=== PATIENT | female | born 1935 | race Caucasian/White ===

== ENCOUNTER 2016-11-03 09:56 | Outpatient (CLI) | payer MEDICARE | END 2016-11-03 09:57 | LOC: LAB 09:56 | PROVIDERS: ATTEND Family Medicine | DX: I48.91 Unspecified atrial fibrillation (principal) | CPT/HCPCS: 36415; 85610 ==

== ENCOUNTER 2017-01-19 10:29 | Emergency (ER) | payer MEDICARE ==
--- NOTE | 2017-01-19 10:35 | ED Physician Documentation ---
General Adult - HISTORIAN Historian: patient - HPI Stated Complaint: rapid heart Chief Complaint: General Adult Onset: hours Timing: still present Severity: moderate Further Comments: yes (Pt is an 82 yo female with hx afib, who had heart palpatations this am. Pt was given her Diltiazem 120 mg ER morning med just prior to leaving for the ER. Pt has not had CP, n/v. She did have some sob.) - ROS CONST: weakness EYES/ENT: none CVS/RESP: shortness of breath, other (rapid heart) GI/: none MS/SKIN/LYMPH: other (skin tear R forearm) - PAST HX Past History: A-Fib, hypertension, other (HLD) Surgeries/Procedures: other (appendectomy) Allergies/Adverse Reactions: Allergies Allergy/AdvReac Type Severity Reaction Status Date / Time No Known Drug Allergies Allergy Unverified 12/17/13 14:16 Home Medications: Ambulatory Orders Medication Instructions Recorded Acetaminophen [Tylenol] 325 mg PO Q4 PRN 01/19/17 Diltiazem HCl [Diltiazem 12Hr ER] 120 mg PO QDAY 01/19/17 Docusate Sodium [Colace] 1 cap PO BID 01/19/17 Hydrocodone/Acetaminophen 1 each PO BID 01/19/17 [Hydrocodon-Acetaminophen 5-325] LORazepam [Ativan] 0.5 mg PO TID PRN 01/19/17 Warfarin Sodium 4 mg PO [id number] 01/19/17 Warfarin Sodium [Coumadin] 5 mg PO [id number] 01/19/17 - SOCIAL HX Smoking History: non-smoker - FAMILY HX Family History: No - REVIEWED ASSESSMENTS Nursing Assessment Reviewed: Yes Vitals Reviewed: Yes Progress - Progress Progress: CXR: 1. Nodules versus nodular infiltrates in the mid to lower right lung. Recommend contrast enhanced chest CT for further evaluation. 2. Thoracic scoliosis, hyperinflation, cardiomegaly, and atherosclerosis. CT chest w contrast: Nodular infiltrative opacity seen within the bilateral lung bases, right greater than left with associated small right pleural effusion. Differential considerations include infectious/inflammatory etiology however malignancy cannot be fully excluded. Short interval CT follow-up recommended to document resolution. Cardiomegaly. Pt's afib with RVR resolved without ER tx. Pt had been given Diltiazem 120 mg ER, just prior to leaving the [facility]. Pt may not have been taking Diltiazem twice daily as rx'd. Pt will resume Diltiazem 120 mg ER bid. Rx Levaquin 500 mg po qd x 10 days for pulmonary nodules, infiltrate vs other etiology. Pt will f/u with pcp for interval evaluation, possible repeat CT scan. Skin tear R forearm repaired with steri-strips. - EKG/XRAY/CT EKG: rhythm (atrial fibrillation with rapid rate, TB=798; LAD;) ED Results Lab/Radiology - Orders Orders: ED Orders Category Date Time Status Continuous EKG monitoring Q30M Care 01/19/17 10:33 Ordered Continuous Pulse Oximetry Q30M Care 01/19/17 10:[address] Saline Lock/IV NOW Care 01/19/17 10:33 Ordered CHEST 1 VIEW [RAD] Stat Exams 01/19/17 10:33 Ordered CBC/PLATELET/DIFF Routine Lab 01/19/17 10:33 Ordered CKMB Stat Lab 01/19/17 Ordered CMP Routine Lab 01/19/17 10:33 Ordered CREATINE KINASE Routine Lab 01/19/17 10:33 Ordered TROPONIN I (cTnI) Stat Lab 01/19/17 10:33 Ordered Oxygen Daily Oxygen 01/19/17 10:45 Ordered EKG WITH COMPARISON Stat Ther 01/19/17 10:33 Ordered General Adult Physical Exam - PHYSICAL EXAM GENERAL APPEARANCE: mild distress EENT: eye inspection normal, pharynx normal NECK: normal inspection, supple RESPIRATORY: no resp distress, chest non-tender, breath sounds normal CVS: irregularly irregular rhy ABDOMEN: soft, no organomegaly, normal bowel sounds BACK: normal inspection SKIN: other (skin tear R forearm) EXTREMITIES: non-tender, normal range of motion NEURO: oriented X3, motor nml, sensation nml Discharge Clincal Impression: Atrial fibrillation with RVR, Lung nodules, ? infiltrate Referrals: Timur Cole MD [Primary Care Provider] - Home Medications: Ambulatory Orders Acetaminophen [Tylenol] 325 mg PO Q4 PRN 01/19/17 Diltiazem HCl [Diltiazem 12Hr ER] 120 mg PO QDAY 01/19/17 Docusate Sodium [Colace] 1 cap PO BID 01/19/17 Hydrocodone/Acetaminophen [Hydrocodon-Acetaminophen 5-325] 1 each PO BID LORazepam [Ativan] 0.5 mg PO TID PRN 01/19/17 Warfarin Sodium 4 mg PO [id number] 01/19/17 Warfarin Sodium [Coumadin] 5 mg PO [id number] 01/19/17 Condition: Stable Disposition: 04 XFER ASSISTED Decision to Admit: NO Decision Time: 13:48
[2017-01-19 10:49] LABS: BASOPHILS % 0.3 (0.0-1.5); EOSINOPHILS % 1.8 % (0.0-6.8); LYMPHOCYTES # 0.8 # k/uL (0.6-4.0); MEAN CORPUSCULAR HEMOGLOBIN 28.3 pg (28.0-34.0); MONOCYTES # 0.2 # k/uL (0.0-0.9); MONOCYTES % 3.9 % (0.0-11.0); NEUTROPHILS # 4.4 # k/uL (1.4-7.7)
[2017-01-19 11:05] LABS: eGFR (African) > 60; eGFR (Non-African) > 60
[2017-01-19 14:13] VITALS: BP 118/60
--- NOTE | 2017-01-19 18:54 | Diagnostic Imaging Report ---
NYDIA ANGELES [facility] [address] [facility] [address] [address] Report Submission Date: Jan 19, 2017 11:22:48 AM CDT Patient Study Name: EVERETTE WHYTE Date: Jan 19, 2017 10:59:45 AM CDT Modality Type: CR Gender: F Description: CHEST : 33 Institution: [facility] Physician: NYDIA ANGELES Portable chest History: Chest pain Findings: A poorly defined right midlung nodule is present. A poorly defined mass or nodular infiltrate is also present at the right lung base. Thoracic scoliosis and aortic atherosclerosis are observed. The cardiac silhouette is mildly enlarged. The lungs are mildly hyperinflated. The left lung is clear. Impression: 1. Nodules versus nodular infiltrates in the mid to lower right lung. Recommend contrast enhanced chest CT for further evaluation. 2. Thoracic scoliosis, hyperinflation, cardiomegaly, and atherosclerosis. Electronically signed on Jan 19, 2017 11:22:48 AM CDT by: Alok LAZCANO
--- NOTE | 2017-01-19 18:55 | Diagnostic Imaging Report ---
[facility] [address] [address] Report Submission Date: Jan 19, 2017 1:15:49 PM CDT Patient Study Name: EVERETTE WHYTE Date: Jan 19, 2017 12:37:39 PM CDT Modality Type: CT\SR Gender: F Description: CT CHEST W/ CONTRAST : 33 Institution: [facility] Physician NYDIA ANGELES - JOE EXAMINATION: CT chest with contrast HISTORY: Lung nodule seen on chest radiograph TECHNIQUE: Transaxial computed tomographic images of the chest were obtained following the uneventful administration of intravenous contrast according to standard protocol coronal in size reformatted images were obtained as part of the examination. FINDINGS: The heart is enlarged. There is mild atherosclerosis present. No significant adenopathy is identified Several nodular infiltrative densities are seen within the right lower lobe most superior one measures 2.1 cm there is hazy additional densities seen more inferiorly with a more focal area of consolidative opacity measuring 2.9 cm with surrounding ground-glass infiltrate. There is also small right pleural effusion. There is also ground-glass infiltrate within the left lung base. Small apical blebs are present. Limited views of the upper abdomen are unremarkable. S-shaped thoracolumbar scoliosis is present. IMPRESSION: 1. Nodular infiltrative opacity seen within the bilateral lung bases, right greater than left with associated small right pleural effusion. Differential considerations include infectious/inflammatory etiology however malignancy cannot be fully excluded. Short interval CT follow-up recommended to document resolution. 2. Cardiomegaly. Electronically signed on Jan 19, 2017 1:15:49 PM CDT by: Trever LAZCANO
== END 2017-01-19 14:08 ==
LOC: ED 10:29
DX: I48.91 Unspecified atrial fibrillation (principal); R91.1 Solitary pulmonary nodule
CPT/HCPCS: 71010; 71260; 80053; 82550; 82553; 84484; 85025; 85610; 99283; 99284; Q9966; S1016

== ENCOUNTER 2018-11-21 11:08 | Inpatient (IN) | payer MEDICARE ==
[2018-11-21 11:26] LABS: BASOPHILS % 0.7 (0.0-1.5); EOSINOPHILS % 2.9 % (0.0-6.8); MEAN CORPUSCULAR HEMOGLOBIN 27.6 pg (28.0-34.0); MONOCYTES % 6.1 % (0.0-11.0); NEUTROPHILS # 11.3 # k/uL (1.4-7.7)
--- NOTE | 2018-11-21 11:39 | ED Physician Documentation ---
General Adult - HISTORIAN Historian: patient - HPI Stated Complaint: dyspnea Chief Complaint: General Adult Onset: days ago (1) Timing: still present Severity: moderate Further Comments: yes (Pt is an 83 yo female jail pt who is reported to have low SpO2 sat at the NH in the 80's with tachycardia and HR in the 120's. Pt has hx afib, and has been taking abx for URI. She finished a course of Azithromycin 2 days ago. Pt SpO2 on arrival here was 86% RA --> 96% 3 L NC.) - ROS CONST: weakness, other (Pt does not give reliable ROS) CVS/RESP: shortness of breath - PAST HX Past History: other (Afib, heart failure, asthma, HTN, OA, anxiety, deafness (since adolescence, reads lips)) Allergies/Adverse Reactions: Allergies Allergy/AdvReac Type Severity Reaction Status Date / Time No Known Drug Allergies Allergy Verified 11/21/18 14:11 Home Medications: Ambulatory Orders Medication Instructions Recorded Acetaminophen [Tylenol] 650 mg PO Q6 01/19/17 Furosemide [Lasix] 40 mg PO DAILY 11/21/18 HYDROcodone /APAP 5/325 [[place] 0.5 tab PO DAILY 11/21/18 5/325] Warfarin Sodium [Coumadin] 5 mg PO [id number] 11/21/18 Warfarin Sodium [Coumadin] 7.5 mg PO [id number] 11/21/18 - SOCIAL HX Smoking History: non-smoker Alcohol Use: none Drug Use: none - FAMILY HX Family History: No - VITAL SIGNS Vital Signs: Vital Signs Temp Pulse Resp BP Pulse Ox 118/60 01/19/17 14:08 - REVIEWED ASSESSMENTS Nursing Assessment Reviewed: Yes Vitals Reviewed: Yes Progress - Progress Progress: CXR: Findings: Single view of the chest demonstrates a prominent cardiac and mediastinal silhouette. Tortuous aorta with vascular calcifications. Bilateral parenchymal infiltrates, right greater than left. Right lateral pleural thickening. Osseous structures demonstrate osteopenia and articular degenerative changes. Impression: Bilateral parenchymal infiltrates, right greater than left. Right lateral pleural thickening/effusion. Cardiomegaly. Duoneb HFN x 1 Blood cx - pending - EKG/XRAY/CT EKG: rhythm (regular rhythm, probably sinus with subtle p waves, HR=97; RBBB; low voltage) ED Results Lab/Radiology - Lab Results Lab Results: Lab Results 11/21/18 11:16 WBC 13.90 K/ul H K/ul (4.00-12.00) RBC 4.36 M/ul M/ul (3.90-5.20) Hgb 12.0 g/dL g/dL (12.0-16.0) Hct 35.7 % % (34.5-46.5) MCV 82.0 fl fl (80.0-100.0) MCH 27.6 pg L pg (28.0-34.0) MCHC 33.7 g/dL g/dL (30.0-36.0) RDW 16.2 % H % (11.3-14.3) Plt Count 453 K/mm3 H K/mm3 (130-400) Neut % (Auto) 81.0 % H % (39.0-79.0) Lymph % (Auto) 9.3 % L % (16.0-50.0) [place] % (Auto) 6.1 % % (0.0-11.0) Eos % (Auto) 2.9 % % (0.0-6.8) Baso % (Auto) 0.7 (0.0-1.5) Neut # (Auto) 11.3 # k/uL H # k/uL (1.4-7.7) Lymph # (Auto) 1.3 # k/uL # k/uL (0.6-4.0) [place] # (Auto) 0.9 # k/uL # k/uL (0.0-0.9) Eos # (Auto) 0.4 # k/uL # k/uL (0.0-0.6) Baso # (Auto) 0.1 # k/uL # k/uL (0.0-0.5) - Orders Orders: ED Orders Category Date Time Status Continuous EKG monitoring Q30M Care 11/21/18 11:16 Active Continuous Pulse Oximetry Q30M Care 11/21/18 11:[address] IV Lock 1T Care 11/21/18 11:16 Active CHEST 1VIEW [RAD] Stat Exams 11/21/18 Ordered ARTERIAL BLOOD GAS Stat Lab 11/21/18 11:35 Ordered CBC/PLATELET/DIFF Routine Lab 11/21/18 11:16 Completed CKMB Stat Lab 11/21/18 11:16 Ordered CMP Routine Lab 11/21/18 11:16 Ordered CREATINE KINASE Routine Lab 11/21/18 11:16 Ordered NT-proBNP Stat Lab 11/21/18 11:16 Ordered TROPONIN I (cTnI) Stat Lab 11/21/18 11:16 Ordered Oxygen Daily Oxygen 11/21/18 11:30 Ordered EKG WITH COMPARISON Stat Ther 11/21/18 11:16 Ordered General Adult Physical Exam - PHYSICAL EXAM GENERAL APPEARANCE: moderate distress EENT: pharynx normal NECK: normal inspection, supple RESPIRATORY: no resp distress, rhonchi CVS: tachycardia (regular) ABDOMEN: soft, no organomegaly, normal bowel sounds BACK: normal inspection, no CVA tenderness SKIN: warm/dry, normal color EXTREMITIES: non-tender, normal range of motion, no evidence of injury, edema (chronic b/l LE) NEURO: motor nml, sensation nml, other (baseline ms) Discharge Clincal Impression: markedly elevated PT/INR, PTT Pneumonia Qualifiers: Pneumonia type: due to unspecified organism Laterality: bilateral Lung location: unspecified part of lung Qualified Code(s): J18.9 - Pneumonia, unspecified organism CHF (congestive heart failure) Qualifiers: Heart failure type: unspecified Heart failure chronicity: unspecified Qualified Code(s): I50.9 - Heart failure, unspecified Condition: Stable Disposition: 09 ADMITTED INPATIENT Decision to Admit: NO Decision Time: 14:04
[2018-11-21 12:11] LABS: eGFR (Non-African) > 60
[2018-11-21] MEDS ORDERED: IPRATROPIUM/ALBUTEROL SULFATE 3 ML AMPUL.NEB NEB ONE ×2 (12:51→12:52)
--- NOTE | 2018-11-21 13:02 | Diagnostic Imaging Report ---
<p>Your browser does not support iframes.</p> NYDIA ANGELES [facility] [address] [facility] [address] Report Submission Date: Nov 21, 2018 12:01:33 PM DEALER SUPPORT TECHNICIAN Patient Study Name: EVERETTE WHYTE Date: Nov 21, 2018 11:33:24 AM DEALER SUPPORT TECHNICIAN Modality Type: DX Gender: F Description: CHEST 1 VIEW : 33 Institution: [facility] Physician: NYDIA ANGELES Examination: Portable chest History: Evaluate lungs Comparison exam: Findings: Single view of the chest demonstrates a prominent cardiac and mediastinal silhouette. Tortuous aorta with vascular calcifications. Bilateral parenchymal infiltrates, right greater than left. Right lateral pleural thickening. Osseous structures demonstrate osteopenia and articular degenerative changes. Impression: Bilateral parenchymal infiltrates, right greater than left. Right lateral pleural thickening/effusion. Cardiomegaly. Electronically signed on Nov 21, 2018 12:01:33 PM DEALER SUPPORT TECHNICIAN by: Victorino LAZCANO
[2018-11-21] MEDS: LEVOFLOXACIN 500MG/D5W 100ML 500 MG in PREMIX BAG 1 BAG IV SCH (14:31)
[2018-11-21] MEDS ORDERED: LEVOFLOXACIN 500MG/D5W 100ML 100 ML IV ONE (14:31)
[2018-11-21 15:01] VITALS: BMI 26.9
[2018-11-21] MEDS: DOXYCYCLINE 100 MG CAPSULE PO SCH (16:16)
[2018-11-21] MEDS ORDERED: PHYTONADIONE 10 MG/1 ML SUBCUT ONE (16:56)
--- NOTE | 2018-11-21 17:01 | History and Physical Report ---
History of Present Illnes - History of Present Illness Reason for Visit: dyspnea History of Present Illness: Patient is and 83-year-old white female who is a resident of [facility]. Approximately 10 days ago patient started having some respiratory distress and a productive sounding cough. Patient was felt to have a bronchitis was started on azithromycin. Patient clearly the course of therapy and seem to be doing some better. However over the last two days patient has been having some increasing dyspnea. Patient stated today that she was not feeling well with noted to be mildly to clinic and tachycardia. A chest x-ray was done so bilateral infiltrate. Patient does have a low-grade fever. Patient continues to have a productive sounding cough. Patient was found to have a SaO2 on room air in the mid 70s. Patient was subsequently transferred to the emergency room. Repeat chest x-ray confirmed bilateral infiltrates. Patient WBC count was mildly elevated. Patient was noted to have a supra-INR. Patient was subsequently admitted to the hospital for further care and evaluation. Chronic medical problems include, constipation, osteoarthritis and chronic pedal edema. - Past Medical History Cardiac: AFIB, HTN, Hyperlipidemia Gastrointestinal: Constipation Musculoskeletal: Osteoarthritis (knees) - Past Surgical History Past Surgical History: Appendectomy, Other (lumpectomy) - Past Family History Mother Family History: Father Family History: - Past Social History Smoke: No Occupation: Housewife Alcohol: None Drugs: None [place]: [place] Domestic Violence: Negative - Health Maintenance Health Maintenance: Cholesterol, Influenza Vaccine, Pneumococcal Vaccine Influenza Vaccine: Current for this Influenza Season Pneumonia Vaccine: Yes Resuscitation Status: Resusciation Status Resuscitation Status Full Code - Unable to Obtain History Unable to Obtain: No Review of Systems - Review of Systems Constitutional: Fever, Chills, Weakness. negative: Sweats Eyes: negative: vision change, redness ENT: Other (severe hearing loss). negative: Ear Pain, Ear Discharge, Nose Pain, Nose Discharge, Nose Congestion, Mouth Pain Respiratory: Cough, Shortness of Breath, SOB with Excertion, Sputum, Wheezing. negative: Hemoptysis, Pleuritic Pain Cardiovascular: Edema (at baseline). negative: Chest Pain, Palpitations, Orthopnea, Paroxysmal Noc. Dyspnea Gastrointestinal: Deferred. negative: Nausea, Vomiting, Abdominal Pain, Diarrhea, Constipation, Melena, Hematochezia Genitourinary: negative: Dysuria, Frequency, Incontinence, Hematuria, Retention Musculoskeletal: Back Pain, Leg Pain Skin: negative: Rash Neurological: Weakness. negative: Numbness, Incoordination, Confusion - Medications/Allergies Allergies/Adverse Reactions: Allergies Allergy/AdvReac Type Severity Reaction Status Date / Time No Known Drug Allergies Allergy Verified 11/21/18 14:11 Current Inpatient Medications: Current Inpatient Medications Albuterol/Ipratropium (Duoneb) 3 ml NEB Q4 [facility] Diltiazem HCl (Cardizem Cd) 120 mg PO BID [facility] Docusate Sodium (Colace) 100 mg PO BID [facility] Doxycycline Monohydrate (Vibramycin) 100 mg PO DAILY [facility] Stop: 12/01/18 14:19 Last Admin: 11/21/18 16:16 Dose: 100 mg Fluticasone Propionate (Flovent 50 Mcg Diskus) 100 mcg IH BID [facility] Furosemide (Lasix) 40 mg IVP Q12 [facility] LEVOFLOXACIN 500MG/D5W 100ML (500 mg/ PREMIX BAG) 100 mls @ 100 mls/hr IV DAILY [facility] Last Admin: 11/21/18 14:31 Dose: 100 mls/hr Simvastatin (Zocor) 10 mg PO HS [facility] Exam - Exam Vital Signs: Vital Signs (72 hours) 11/21/18 11/21/18 11/21/18 11:10 12:12 12:28 Temperature 97.0 F L Pulse Rate 96 H 93 H Pulse Rate [ Left] Pulse Rate [ 108 H Pulse ox] Respiratory 24 Rate Blood Pressure 115/54 [Left Arm] O2 Sat by Pulse 96 96 96 Oximetry 11/21/18 11/21/18 11/21/18 13:10 13:34 14:10 Temperature Pulse Rate 108 H 106 H Pulse Rate [ Left] Pulse Rate [ Pulse ox] Respiratory Rate Blood Pressure [Left Arm] O2 Sat by Pulse 100 93 94 Oximetry 11/21/18 11/21/18 11/21/18 14:34 14:51 14:58 Temperature 97.4 F L 97.4 F L Pulse Rate Pulse Rate [ 113 H 113 H Left] Pulse Rate [ 103 H 103 H Pulse ox] Respiratory 22 20 18 Rate Blood Pressure 115/57 104/61 104/61 [Left Arm] O2 Sat by Pulse 99 91 L 91 L Oximetry 11/21/18 11/21/18 11/21/18 15:00 15:30 15:48 Temperature Pulse Rate 116 H 100 H 104 H Pulse Rate [ Left] Pulse Rate [ Pulse ox] Respiratory Rate Blood Pressure [Left Arm] O2 Sat by Pulse 91 L 91 L Oximetry General: Alert, Oriented to Person, Oriented to Place, Oriented to Time, Cooperative, Moderate distress HEENT: Atraumatic, Nose Mucous membr. moist/[place], Edentulous, Decreased Hearing Acuity Neck: Normal Range of Motion. No: Stridor, Lymphadenopathy Carotids: WNL Thyroid: 1wnl Lungs: Speaks full Sentences, Respiratory Distress (mild), Wheezes, Rhonchi (bilat L>R) Cardiovascular: Regular rate, Normal S1, Normal S2, No murmurs, Murmur Murmur: Systolic Murmur Abdomen: Normal bowel sounds, Soft, No tenderness, No hepatospenomegaly, No masses Integumentary: Normal, [place], Warm, Dry Extremities: No clubbing, Other (2-3 plus elpidio) Neurological: Normal speech, Strength Equal Bilat, Normal tone, Sensation intact, Cranial nerves 3-12 NL, Reflexes 2+ Psych/Mental Status: Mental status NL, Mood NL, Appropriate Affect, Intact Judgment - Laboratory Results Laboratory Results: Laboratory Results 11/21/18 11/21/18 11/21/18 11:16 11:44 12:00 WBC 13.90 H RBC 4.36 Hgb 12.0 Hct 35.7 MCV 82.0 MCH 27.6 L MCHC 33.7 RDW 16.2 H Plt Count 453 H Neut % (Auto) 81.0 H Lymph % (Auto) 9.3 L [place] % (Auto) 6.1 Eos % (Auto) 2.9 Baso % (Auto) 0.7 Neut # (Auto) 11.3 H Lymph # (Auto) 1.3 [place] # (Auto) 0.9 Eos # (Auto) 0.4 Baso # (Auto) 0.1 PT INR APTT Sodium 132 L Potassium 3.5 Chloride 93 L Carbon Dioxide 32 H BUN 16 Creatinine 0.70 Estimated Creat Clear 77 Est GFR ( Amer) > 60 Est GFR (Non-Af Amer) > 60 Glucose 111 H Calcium 7.8 L Total Bilirubin 0.7 AST 37 ALT 34 Alkaline Phosphatase 192 H Creatine Kinase 37 CK-MB (CK-2) 0.8 Troponin I < 0.03 L NT-Pro-B Natriuret Pep 2630.2 H Total Protein 5.8 L Albumin 2.9 L 11/21/18 11/21/18 12:00 Unknown WBC RBC Hgb Hct MCV MCH MCHC RDW Plt Count Neut % (Auto) Lymph % (Auto) [place] % (Auto) Eos % (Auto) Baso % (Auto) Neut # (Auto) Lymph # (Auto) [place] # (Auto) Eos # (Auto) Baso # (Auto) PT 237.0 H 245.6 H INR 19.57 H* 20.25 H* APTT 77.3 H Sodium Potassium Chloride Carbon Dioxide BUN Creatinine Estimated Creat Clear Est GFR ( Amer) Est GFR (Non-Af Amer) Glucose Calcium Total Bilirubin AST ALT Alkaline Phosphatase Creatine Kinase CK-MB (CK-2) Troponin I NT-Pro-B Natriuret Pep Total Protein Albumin Assessment/Plan - Assessment/Plan (1) Pneumonia Status: Acute Current Visit: Yes Qualifiers: Pneumonia type: due to unspecified organism Laterality: bilateral Lung location: unspecified part of lung Qualified Code(s): J18.9 - Pneumonia, unspecified organism Assessment: Patient will be started on HFN Duoned, Levaquin and doxycycline for antibiotics. Patient will be maintained on supplemental oxygen therapy. (2) Pedal edema Status: Chronic Current Visit: Yes Plan: continue wiht lasix (3) Atrial fibrillation with RVR Status: Chronic Current Visit: Yes Plan: continue home meds (4) Abnormal international normal ratio (INR) Status: Acute Current Visit: Yes Plan: Will give vitamin K and monitor VTE Assessment - RISK FACTOR SCORE VTE RISK FACTOR SCORES: AGE OVER 60 YEARS, ACUTE INFECTION OTHER THEN SEPSIS, ANTICIPATED BED CONFINEMENT OR IMMOBILIZATION > 24 HOURS (on coumadin) - RISK VTE HIGH RISK: SCORE OF 3-4 (RISK PROXIMAL DVT 4-8%) PROPHYLAXIS NEEDED
[2018-11-21] MEDS: IPRATROPIUM/ALBUTEROL SULFATE 3 ML AMPUL.NEB NEB SCH ×2 (17:40→20:46)
[2018-11-21] MEDS ORDERED: FLUTICASONE PROPIONATE 120 SPRAY/16 GR BOTTLE NS ONE (19:47)
[2018-11-21] MEDS: DOCUSATE SODIUM 100 MG CAPSULE PO SCH (20:18)
[2018-11-21] MEDS: SIMVASTATIN 20 MG TABLET PO SCH (20:18)
[2018-11-21] MEDS: DILTIAZEM HCL 120 MG CAP.ER.24H PO SCH (20:18)
[2018-11-21] MEDS: FLUTICASONE PROPIONATE 50 MCG BLST.W.DEV IH SCH (20:53)
[2018-11-21] MEDS ORDERED: FUROSEMIDE 40 MG/4 ML VIAL IVP SCH (21:00)
[2018-11-22] MEDS: IPRATROPIUM/ALBUTEROL SULFATE 3 ML AMPUL.NEB NEB SCH ×6 (01:29→21:38)
[2018-11-22 07:40] LABS: eGFR (Non-African) > 60
[2018-11-22] MEDS ORDERED: LEVOFLOXACIN 500MG/D5W 100ML 100 ML IV ONE (07:55)
[2018-11-22 08:14] LABS: BASOPHILS % 0.7 (0.0-1.5); EOSINOPHILS % 2.8 % (0.0-6.8); MEAN CORPUSCULAR HEMOGLOBIN 27.5 pg (28.0-34.0); MONOCYTES % 7.7 % (0.0-11.0); NEUTROPHILS # 11.2 # k/uL (1.4-7.7)
[2018-11-22] MEDS ORDERED: ACETAMINOPHEN 325 MG TABLET PO PRN (08:34)
--- NOTE | 2018-11-22 08:39 | Inpatient Progress Note ---
Subjective - Required Recertification Statement I anticipate X number of days because-include discharge plan: 2 days - Review of Systems Events since last encounter: Patient stated she still does not feel like she is doing well. Patient continued to complain of some shortness of breath dyspnea. Patient denies any chest pain. General: Denies: Chills Gastrointestinal: Nausea. Denies: Vomiting Objective - Exam Vitals and I&O: Vital Signs Temp 97.5 F L 11/22/18 08:01 Pulse 105 H 11/22/18 08:01 Resp 18 11/22/18 08:01 BP 104/51 11/22/18 08:01 Pulse Ox 90 L 11/22/18 08:01 Intake & Output 11/21/18 11/21/18 11/22/18 11:59 23:59 11:59 Intake Total 320 Output Total 1500 1200 Balance -1180 -1200 Weight 71.214 kg 68.946 kg Intake: Oral 320 Output: Urine 1500 1200 Other: Voiding Method Bedside Commode Bedside Commode General: Alert, Oriented to Person, Oriented to Place, Oriented to Time, Cooperative Neck: Supple, No JVD, No thyromegaly Lungs: Rhonchi (bilat) Cardiovascular: Normal S1, Normal S2, Irregularly Irregular - Results Results: Laboratory Results WBC 14.30 K/ul (4.00-12.00) H 11/22/18 06:00 RBC 4.37 M/ul (3.90-5.20) 11/22/18 06:00 Hgb 12.0 g/dL (12.0-16.0) 11/22/18 06:00 Hct 36.4 % (34.5-46.5) 11/22/18 06:00 MCV 83.0 fl (80.0-100.0) 11/22/18 06:00 MCH 27.5 pg (28.0-34.0) L 11/22/18 06:00 MCHC 33.0 g/dL (30.0-36.0) 11/22/18 06:00 RDW 14.4 % (11.3-14.3) H 11/22/18 06:00 Plt Count 560 K/mm3 (130-400) H 11/22/18 06:00 Neut % (Auto) 78.4 % (39.0-79.0) 11/22/18 06:00 Lymph % (Auto) 10.4 % (16.0-50.0) L 11/22/18 06:00 [place] % (Auto) 7.7 % (0.0-11.0) 11/22/18 06:00 Eos % (Auto) 2.8 % (0.0-6.8) 11/22/18 06:00 Baso % (Auto) 0.7 (0.0-1.5) 11/22/18 06:00 Neut # (Auto) 11.2 # k/uL (1.4-7.7) H 11/22/18 06:00 Lymph # (Auto) 1.5 # k/uL (0.6-4.0) 11/22/18 06:00 [place] # (Auto) 1.1 # k/uL (0.0-0.9) H 11/22/18 06:00 Eos # (Auto) 0.4 # k/uL (0.0-0.6) 11/22/18 06:00 Baso # (Auto) 0.1 # k/uL (0.0-0.5) 11/22/18 06:00 PT 180.4 Seconds (9.4-11.6) H 11/22/18 06:00 INR 15.06 (0.9-1.2) H* 11/22/18 06:00 APTT 77.3 Seconds (24.5-32.8) H 11/21/18 Unknown Sodium 132 mmol/L (136-145) L 11/22/18 06:00 Potassium 3.7 mmol/L (3.5-5.1) 11/22/18 06:00 Chloride 93 mmol/L (98-107) L 11/22/18 06:00 Carbon Dioxide 34 mmol/L (22-30) H 11/22/18 06:00 BUN 13 mg/dL (7-17) 11/22/18 06:00 Creatinine 0.68 mg/dL (0.52-1.04) 11/22/18 06:00 Estimated Creat Clear 77 11/22/18 06:00 Est GFR ( Amer) > 60 (60-) 11/22/18 06:00 Est GFR (Non-Af Amer) > 60 (60-) 11/22/18 06:00 Glucose 89 mg/dL (74-106) 11/22/18 06:00 Calcium 7.8 mg/dL (8.4-10.2) L 11/22/18 06:00 Total Bilirubin 0.7 mg/dL (0.2-1.3) 11/22/18 06:00 AST 40 U/L (15-46) 11/22/18 06:00 ALT 39 U/L (13-69) 11/22/18 06:00 Alkaline Phosphatase 197 U/L (38-126) H 11/22/18 06:00 Creatine Kinase 37 U/L (30-135) 11/21/18 11:44 CK-MB (CK-2) 0.8 ng/mL (0.0-5.6) 11/21/18 12:00 Troponin I < 0.03 ng/mL (0.03-0.06) L 11/21/18 12:00 NT-Pro-B Natriuret Pep 3178.7 pg/mL (15.0-450.0) H 11/22/18 06:00 Total Protein 5.9 g/dL (6.3-8.2) L 11/22/18 06:00 Albumin 2.9 g/dL (3.5-5.0) L 11/22/18 06:00 Assessment/Plan - Assessment/Plan (1) Pneumonia Status: Acute Qualifiers: Pneumonia type: due to unspecified organism Laterality: bilateral Lung location: unspecified part of lung Qualified Code(s): J18.9 - Pneumonia, unspecified organism Assessment: slowly improving (2) Pedal edema Status: Chronic (3) Atrial fibrillation with RVR Status: Chronic (4) Abnormal international normal ratio (INR) Status: Acute Assessment: improving, will continue to hold coumdin
[2018-11-22] MEDS: DILTIAZEM HCL 120 MG CAP.ER.24H PO SCH ×2 (08:55→21:50)
[2018-11-22] MEDS: DOXYCYCLINE 100 MG CAPSULE PO SCH (08:55)
[2018-11-22] MEDS: HYDROcodone /APAP 5/325 1 EACH TABLET PO SCH (08:55)
[2018-11-22] MEDS: DOCUSATE SODIUM 100 MG CAPSULE PO SCH ×2 (08:55→21:50)
[2018-11-22] MEDS: LEVOFLOXACIN 500MG/D5W 100ML 500 MG in PREMIX BAG 1 BAG IV SCH (08:57)
[2018-11-22] MEDS: FLUTICASONE PROPIONATE 50 MCG BLST.W.DEV IH SCH ×2 (09:04→21:48)
[2018-11-22] MEDS ORDERED: FUROSEMIDE 20 MG/2 ML VIAL ONE (09:49)
[2018-11-22] MEDS: FUROSEMIDE 40 MG/4 ML VIAL IVP SCH ×2 (10:03→21:39)
[2018-11-22] MEDS: SIMVASTATIN 20 MG TABLET PO SCH (21:50)
[2018-11-23] MEDS: IPRATROPIUM/ALBUTEROL SULFATE 3 ML AMPUL.NEB NEB SCH ×6 (04:37→22:06)
[2018-11-23 07:01] LABS: eGFR (Non-African) > 60
[2018-11-23 07:22] LABS: MEAN CORPUSCULAR HEMOGLOBIN 27.8 pg (28.0-34.0)
[2018-11-23 07:23] LABS: BASOPHILS % 0.7 (0.0-1.5); EOSINOPHILS % 2.8 % (0.0-6.8); MONOCYTES % 7.1 % (0.0-11.0); NEUTROPHILS # 10.4 # k/uL (1.4-7.7)
--- NOTE | 2018-11-23 07:51 | Inpatient Progress Note ---
Subjective - Required Recertification Statement I anticipate X number of days because-include discharge plan: 2 days - Review of Systems Events since last encounter: Patient continues to have a cough but seems to be looser. Patient believes that she is breathing some better. Still needs oxygen support. Feels very weak, does not feel that she can ambulate well at this time. Appetite seems to be improving some. General: Denies: Chills Pulmonary: Dyspnea, Cough Cardiovascular: Denies: Chest Pain, Palpitations, Light [place]adedness Gastrointestinal: Denies: Nausea, Vomiting Objective - Exam Vitals and I&O: Vital Signs Temp 97.8 F 11/23/18 05:38 Pulse 105 H 11/23/18 05:38 Resp 16 11/23/18 05:38 BP 110/57 11/23/18 05:38 Pulse Ox 93 11/23/18 05:38 Intake & Output 11/22/18 11/22/18 11/23/18 11:59 23:59 11:59 Intake Total 240 600 Output Total 9429 787 2666 Balance -960 400 -1225 Intake: Oral 240 600 Output: Urine 9654 717 9450 Other: Voiding Method Bedside Commode Bedside Commode # Voids 1 2 General: Alert, Oriented to Person, Oriented to Place, Cooperative, No acute distress, Mild distress. No: Oriented to Time Neck: Supple Lungs: Normal air movement, Speaks full Sentences, Rhonchi (left base). No: Wheezes Cardiovascular: Normal S1, Normal S2, Irregularly Irregular Abdomen: Normal bowel sounds, Soft, No tenderness Skin: Normal, [place], Warm Neurological: Normal speech, Strength Equal Bilat. No: Normal gait Psych/Mental Status: Mental status NL, Mood NL, Appropriate Affect, Intact Judgment - Results Results: Laboratory Results WBC 13.00 K/ul (4.00-12.00) H 11/23/18 06:20 RBC 4.08 M/ul (3.90-5.20) 11/23/18 06:20 Hgb 11.4 g/dL (12.0-16.0) L 11/23/18 06:20 Hct 34.2 % (34.5-46.5) L 11/23/18 06:20 MCV 84.0 fl (80.0-100.0) 11/23/18 06:20 MCH 27.8 pg (28.0-34.0) L 11/23/18 06:20 MCHC 33.2 g/dL (30.0-36.0) 11/23/18 06:20 RDW 14.9 % (11.3-14.3) H 11/23/18 06:20 Plt Count 524 K/mm3 (130-400) H 11/23/18 06:20 Neut % (Auto) 80.1 % (39.0-79.0) H 11/23/18 06:20 Lymph % (Auto) 9.3 % (16.0-50.0) L 11/23/18 06:20 [place] % (Auto) 7.1 % (0.0-11.0) 11/23/18 06:20 Eos % (Auto) 2.8 % (0.0-6.8) 11/23/18 06:20 Baso % (Auto) 0.7 (0.0-1.5) 11/23/18 06:20 Neut # (Auto) 10.4 # k/uL (1.4-7.7) H 11/23/18 06:20 Lymph # (Auto) 1.2 # k/uL (0.6-4.0) 11/23/18 06:20 [place] # (Auto) 0.9 # k/uL (0.0-0.9) 11/23/18 06:20 Eos # (Auto) 0.4 # k/uL (0.0-0.6) 11/23/18 06:20 Baso # (Auto) 0.1 # k/uL (0.0-0.5) 11/23/18 06:20 PT 180.4 Seconds (9.4-11.6) H 11/22/18 06:00 INR 15.06 (0.9-1.2) H* 11/22/18 06:00 APTT 77.3 Seconds (24.5-32.8) H 11/21/18 Unknown Sodium 132 mmol/L (136-145) L 11/23/18 06:20 Potassium 3.4 mmol/L (3.5-5.1) L 11/23/18 06:20 Chloride 94 mmol/L (98-107) L 11/23/18 06:20 Carbon Dioxide 33 mmol/L (22-30) H 11/23/18 06:20 BUN 14 mg/dL (7-17) 11/23/18 06:20 Creatinine 0.69 mg/dL (0.52-1.04) 11/23/18 06:20 Estimated Creat Clear 76 11/23/18 06:20 Est GFR ( Amer) > 60 (60-) 11/23/18 06:20 Est GFR (Non-Af Amer) > 60 (60-) 11/23/18 06:20 Glucose 91 mg/dL (74-106) 11/23/18 06:20 Calcium 7.6 mg/dL (8.4-10.2) L 11/23/18 06:20 Total Bilirubin 0.7 mg/dL (0.2-1.3) 11/22/18 06:00 AST 40 U/L (15-46) 11/22/18 06:00 ALT 39 U/L (13-69) 11/22/18 06:00 Alkaline Phosphatase 197 U/L (38-126) H 11/22/18 06:00 Creatine Kinase 37 U/L (30-135) 11/21/18 11:44 CK-MB (CK-2) 0.8 ng/mL (0.0-5.6) 11/21/18 12:00 Troponin I < 0.03 ng/mL (0.03-0.06) L 11/21/18 12:00 NT-Pro-B Natriuret Pep 3178.7 pg/mL (15.0-450.0) H 11/22/18 06:00 Total Protein 5.9 g/dL (6.3-8.2) L 11/22/18 06:00 Albumin 2.9 g/dL (3.5-5.0) L 11/22/18 06:00 Assessment/Plan - Assessment/Plan (1) Pneumonia Status: Acute Current Visit: Yes Qualifiers: Pneumonia type: due to unspecified organism Laterality: bilateral Lung location: unspecified part of lung Qualified Code(s): J18.9 - Pneumonia, unspecified organism Assessment: seems to be improved, will continue with antibiotics (2) Pedal edema Status: Chronic Current Visit: Yes Assessment: stable (3) Atrial fibrillation with RVR Status: Chronic Current Visit: Yes Assessment: stable, rate controlled (4) Abnormal international normal ratio (INR) Status: Acute Current Visit: Yes Assessment: 6.4 INR, improving without intervention
[2018-11-23] MEDS ORDERED: LEVOFLOXACIN 500MG/D5W 100ML 100 ML IV ONE (08:14)
[2018-11-23] MEDS: FUROSEMIDE 40 MG/4 ML VIAL IVP SCH ×2 (08:49→21:56)
[2018-11-23] MEDS: LEVOFLOXACIN 500MG/D5W 100ML 500 MG in PREMIX BAG 1 BAG IV SCH (09:37)
[2018-11-23] MEDS: DOXYCYCLINE 100 MG CAPSULE PO SCH (09:40)
[2018-11-23] MEDS: HYDROcodone /APAP 5/325 1 EACH TABLET PO SCH (09:40)
[2018-11-23] MEDS: DILTIAZEM HCL 120 MG CAP.ER.24H PO SCH ×2 (09:40→21:09)
[2018-11-23] MEDS: DOCUSATE SODIUM 100 MG CAPSULE PO SCH ×2 (09:40→21:09)
[2018-11-23] MEDS: FLUTICASONE PROPIONATE 50 MCG BLST.W.DEV IH SCH ×2 (09:41→21:11)
[2018-11-23] MEDS: SIMVASTATIN 20 MG TABLET PO SCH (21:09)
[2018-11-24] MEDS: IPRATROPIUM/ALBUTEROL SULFATE 3 ML AMPUL.NEB NEB SCH ×6 (01:36→21:03)
[2018-11-24 07:55] LABS: MEAN CORPUSCULAR HEMOGLOBIN 27.6 pg (28.0-34.0)
[2018-11-24 07:56] LABS: BASOPHILS % 0.6 (0.0-1.5); MONOCYTES % 6.4 % (0.0-11.0); NEUTROPHILS # 10.4 # k/uL (1.4-7.7)
[2018-11-24 07:57] LABS: eGFR (Non-African) > 60
[2018-11-24] MEDS ORDERED: LEVOFLOXACIN 500MG/D5W 100ML 100 ML IV ONE (08:36)
[2018-11-24] MEDS: LEVOFLOXACIN 500MG/D5W 100ML 500 MG in PREMIX BAG 1 BAG IV SCH (08:40)
[2018-11-24] MEDS: DOXYCYCLINE 100 MG CAPSULE PO SCH (08:41)
[2018-11-24] MEDS: HYDROcodone /APAP 5/325 1 EACH TABLET PO SCH (08:41)
[2018-11-24] MEDS: DOCUSATE SODIUM 100 MG CAPSULE PO SCH ×2 (08:41→20:18)
[2018-11-24] MEDS: FLUTICASONE PROPIONATE 50 MCG BLST.W.DEV IH SCH ×2 (08:42→20:18)
[2018-11-24] MEDS ORDERED: DILTIAZEM HCL 120 MG CAP.ER.24H PO SCH (09:00)
[2018-11-24] MEDS: FUROSEMIDE 40 MG/4 ML VIAL IVP SCH ×2 (09:29→20:26)
--- NOTE | 2018-11-24 11:10 | Diagnostic Imaging Report ---
ARCADIO ALLEN [facility] [address] [facility].[address] [address] Report Submission Date: Nov 24, 2018 11:07:27 AM PERFORMING ARTIST Patient Study Name: EVERETTE WHYTE Date: Nov 24, 2018 10:34:24 AM PERFORMING ARTIST Modality Type: DX Gender: F Description: CHEST 2VIEW : 31 Institution: [facility] Physician: ARCADIO ALLEN 2 views chest Clinical history: Dyspnea Findings: Comparison to prior chest x-ray Extensive bilateral pulmonary filtrate certain noted which have improved on the right. There is increase in left upper lobe infiltrate. No pleural effusion or pneumothorax. Impression: Improving right lung infiltrates with slight worsening of left lung infiltrate. Electronically signed on Nov 24, 2018 11:07:27 AM PERFORMING ARTIST by: Michael LAZCANO
[2018-11-24] MEDS ORDERED: FUROSEMIDE 20 MG/2 ML VIAL ONE (19:07)
[2018-11-24] MEDS: SIMVASTATIN 20 MG TABLET PO SCH (20:18)
[2018-11-25] MEDS: IPRATROPIUM/ALBUTEROL SULFATE 3 ML AMPUL.NEB NEB SCH ×6 (02:06→23:09)
[2018-11-25] MEDS: HYDROcodone /APAP 5/325 1 EACH TABLET PO SCH (08:20)
[2018-11-25] MEDS: DOXYCYCLINE 100 MG CAPSULE PO SCH (08:20)
[2018-11-25] MEDS: DOCUSATE SODIUM 100 MG CAPSULE PO SCH ×2 (08:20→20:49)
[2018-11-25] MEDS: FLUTICASONE PROPIONATE 50 MCG BLST.W.DEV IH SCH ×2 (08:21→20:48)
[2018-11-25] MEDS: FUROSEMIDE 40 MG/4 ML VIAL IVP SCH ×2 (09:15→20:54)
[2018-11-25] MEDS ORDERED: LEVOFLOXACIN 500MG/D5W 100ML 100 ML IV ONE (09:40)
[2018-11-25] MEDS: DILTIAZEM HCL 120 MG CAP.ER.24H PO SCH ×2 (09:41→20:50)
[2018-11-25] MEDS: LEVOFLOXACIN 500MG/D5W 100ML 500 MG in PREMIX BAG 1 BAG IV SCH (09:41)
[2018-11-25] MEDS: SIMVASTATIN 20 MG TABLET PO SCH (20:49)
[2018-11-26] MEDS: IPRATROPIUM/ALBUTEROL SULFATE 3 ML AMPUL.NEB NEB SCH ×4 (01:36→12:25)
--- NOTE | 2018-11-26 07:45 | Discharge Summary ---
Discharge Summary - Discharge Sumary History of Present Illness: Patient is and 83-year-old white female who is a resident of [facility]. Approximately 10 days ago patient started having some respiratory distress and a productive sounding cough. Patient was felt to have a bronchitis was started on azithromycin. Patient clearly the course of therapy and seem to be doing some better. However over the last two days patient has been having some increasing dyspnea. Patient stated today that she was not feeling well with noted to be mildly to clinic and tachycardia. A chest x-ray was done so bilateral infiltrate. Patient does have a low-grade fever. Patient continues to have a productive sounding cough. Patient was found to have a SaO2 on room air in the mid 70s. Patient was subsequently transferred to the emergency room. Repeat chest x-ray confirmed bilateral infiltrates. Patient WBC count was mildly elevated. Patient was noted to have a supra-INR. Patient was subsequently admitted to the hospital for further care and evaluation. Chronic medical problems include, constipation, osteoarthritis and chronic pedal edema. Condition at Discharge: Stable Home Medications: Ambulatory Orders Medication Instructions Recorded Acetaminophen [Tylenol] 650 mg PO Q6 01/19/17 Furosemide [Lasix] 20 mg PO DAILY #0 11/26/18 HYDROcodone /APAP 5/325 [[place] 0.5 each PO DAILY tablet 11/26/18 5/325] Ipratropium/Albuterol Sulfate 3 ml NEB PRN ampul.neb 11/26/18 [Duoneb] Levofloxacin [Levaquin] 500 mg PO D #7 tablet 11/26/18 Simvastatin [Zocor] 10 mg PO HS tablet 11/26/18 Warfarin Sodium [Coumadin] 5 mg PO QDAY #0 11/26/18 Consultations this Visit: None Procedures this Visit: None Allergies/Adverse Reactions: Allergies Allergy/AdvReac Type Severity Reaction Status Date / Time No Known Drug Allergies Allergy Verified 11/21/18 14:11 Patient Problems: Current Active Problems Problem Status Onset Abnormal international normal ratio (INR) Acute CHF (congestive heart failure) Acute Hypocalcemia Acute Pneumonia Acute Atrial fibrillation with RVR Chronic Pedal edema Chronic Discharge Summary: Patient was started on Levaquin and Doxycycline on admission to the hospital. Patient was given Duoneb HFN treatments. Patient needed to be on supplemental oxygen in order to maintain SAO2> 90%. Patient's cough did improve and her breathing status did improve with treatment. Patient has a history of Atrial fibrillation. INR on admission was markedly elevated at 19.57. Patient was noted to be hypoclacemic and was started on supplemental calcium therapy. Patient was given Vitamin K and since she did not have nay bleeding abnl Coumadin was held until INR returned to normal therapeutic range.Patient did have some mild hypotension and her Diltiazem was decreased. However then the rate of her atrial fib increased and this had to be restarted. Patient's furosemide was decrease to help with the low BP. At the time of discharge patient was weak but improved. Apeetite was good. Patient denied any constipation. - Final Diagnosis (1) Pneumonia Problems: improved, will continue Levaquin upon discharge (2) Pedal edema Problems: stabe, furosemide has been to 1/2 of her previous dose. (3) Atrial fibrillation with RVR Problems: stable, at time will go to 120s for a short period of time (4) Abnormal international normal ratio (INR) Problems: Has normalized, will restart at decrease dose and monitor (5) Hypocalcemia Problems: supplemental calcium started.
--- NOTE | 2018-11-26 08:03 | Inpatient Progress Note ---
Subjective - Required Recertification Statement I anticipate X number of days because-include discharge plan: 1 day - Review of Systems Events since last encounter: Patient has been having some difficulties with low blood pressure. Patient diltiazem has been increased. Patient otherwise stated her breathing seem to be doing some better. Patient continues to be an appropriate with an occasional rapid ventricular response. Patient INR is trending down. General: Denies: Chills Pulmonary: Dyspnea, Cough Cardiovascular: Palpitations. Denies: Chest Pain Gastrointestinal: Denies: Nausea, Vomiting, Abdominal Pain, Diarrhea, Constipation Objective - Exam Vitals and I&O: Vital Signs Temp 97.6 F 11/26/18 05:03 Pulse 119 H 11/26/18 07:58 Resp 14 11/26/18 05:10 BP 102/54 11/26/18 05:03 Pulse Ox 98 11/26/18 05:10 Intake & Output 11/25/18 11/25/18 11/26/18 11:59 23:59 11:59 Intake Total 840 500 360 Output Total 700 400 Balance 140 100 360 Intake: IV 480 Right Forearm 480 Oral 360 500 360 Output: Urine 700 400 Other: Voiding Method Bedside Commode Bedside Commode Bedside Commode # Voids 1 1 2 # Bowel Movements 0 General: Alert, Oriented to Person, Oriented to Place, Oriented to Time, Cooperative Neck: Supple, No JVD Lungs: Normal air movement, Speaks full Sentences, Rhonchi (bilat) Cardiovascular: Irregularly Irregular, Atrial Fib Abdomen: Normal bowel sounds, Soft Extremities: Other (edema stable) Skin: Normal, [place], Warm, Dry, Other (ecchymotic lessions to arms) Neurological: Normal gait, Normal speech, Strength Equal Bilat - Results Results: Laboratory Results WBC 13.00 K/ul (4.00-12.00) H 11/24/18 05:20 RBC 4.05 M/ul (3.90-5.20) 11/24/18 05:20 Hgb 11.2 g/dL (12.0-16.0) L 11/24/18 05:20 Hct 34.0 % (34.5-46.5) L 11/24/18 05:20 MCV 84.0 fl (80.0-100.0) 11/24/18 05:20 MCH 27.6 pg (28.0-34.0) L 11/24/18 05:20 MCHC 32.8 g/dL (30.0-36.0) 11/24/18 05:20 RDW 14.5 % (11.3-14.3) H 11/24/18 05:20 Plt Count 525 K/mm3 (130-400) H 11/24/18 05:20 Neut % (Auto) 80.0 % (39.0-79.0) H 11/24/18 05:20 Lymph % (Auto) 10.0 % (16.0-50.0) L 11/24/18 05:20 [place] % (Auto) 6.4 % (0.0-11.0) 11/24/18 05:20 Eos % (Auto) 3.0 % (0.0-6.8) 11/24/18 05:20 Baso % (Auto) 0.6 (0.0-1.5) 11/24/18 05:20 Neut # (Auto) 10.4 # k/uL (1.4-7.7) H 11/24/18 05:20 Lymph # (Auto) 1.3 # k/uL (0.6-4.0) 11/24/18 05:20 [place] # (Auto) 0.8 # k/uL (0.0-0.9) 11/24/18 05:20 Eos # (Auto) 0.4 # k/uL (0.0-0.6) 11/24/18 05:20 Baso # (Auto) 0.1 # k/uL (0.0-0.5) 11/24/18 05:20 PT 42.8 Seconds (9.4-11.6) H 11/24/18 05:20 INR 4.02 (0.9-1.2) H 11/24/18 05:20 APTT 77.3 Seconds (24.5-32.8) H 11/21/18 Unknown Sodium 134 mmol/L (136-145) L 11/24/18 05:20 Potassium 3.5 mmol/L (3.5-5.1) 11/24/18 05:20 Chloride 96 mmol/L (98-107) L 11/24/18 05:20 Carbon Dioxide 33 mmol/L (22-30) H 11/24/18 05:20 BUN 15 mg/dL (7-17) 11/24/18 05:20 Creatinine 0.73 mg/dL (0.52-1.04) 11/24/18 05:20 Estimated Creat Clear 72 11/24/18 05:20 Est GFR ( Amer) > 60 (60-) 11/24/18 05:20 Est GFR (Non-Af Amer) > 60 (60-) 11/24/18 05:20 Glucose 85 mg/dL (74-106) 11/24/18 05:20 Calcium 7.6 mg/dL (8.4-10.2) L 11/24/18 05:20 Total Bilirubin 0.7 mg/dL (0.2-1.3) 11/22/18 06:00 AST 40 U/L (15-46) 11/22/18 06:00 ALT 39 U/L (13-69) 11/22/18 06:00 Alkaline Phosphatase 197 U/L (38-126) H 11/22/18 06:00 Creatine Kinase 37 U/L (30-135) 11/21/18 11:44 CK-MB (CK-2) 0.8 ng/mL (0.0-5.6) 11/21/18 12:00 Troponin I < 0.03 ng/mL (0.03-0.06) L 11/21/18 12:00 NT-Pro-B Natriuret Pep 3178.7 pg/mL (15.0-450.0) H 11/22/18 06:00 Total Protein 5.9 g/dL (6.3-8.2) L 11/22/18 06:00 Albumin 2.9 g/dL (3.5-5.0) L 11/22/18 06:00 Assessment/Plan - Assessment/Plan (1) Pneumonia Status: Acute Current Visit: Yes Qualifiers: Pneumonia type: due to unspecified organism Laterality: bilateral Lung location: unspecified part of lung Qualified Code(s): J18.9 - Pneumonia, unspecified organism Plan: continue with present care (2) Pedal edema Status: Chronic Current Visit: Yes Assessment: stable (3) Atrial fibrillation with RVR Status: Chronic Current Visit: Yes Assessment: continue with present meds, will mointor doue to decreasing Diltiazem. (4) Abnormal international normal ratio (INR) Status: Acute Current Visit: Yes Plan: continue to hold coumadin
[2018-11-26] MEDS ORDERED: LEVOFLOXACIN 500MG/D5W 100ML 100 ML IV ONE (08:06)
--- NOTE | 2018-11-26 08:09 | Inpatient Progress Note ---
Subjective - Required Recertification Statement I anticipate X number of days because-include discharge plan: 1 day - Review of Systems Events since last encounter: Patient continues to have some rapid ventricular response associated with her atrial fibrillation diltiazem has been increase backup to her baseline dose. Patient breathing status appeared to be improving. Chest x-ray did show some improvement of the infiltrate on one side with some increasing infiltrate on the other. Patient has been able to maintain her SaO2 in the mid 90s on supplemental oxygen. However when oxygen was removed during the night patient did drop down into the 80s and had to be restarted after she had been tapered off. General: Denies: Chills HEENT: Denies: Head Aches Pulmonary: Dyspnea, Cough Cardiovascular: Denies: Chest Pain, Palpitations Gastrointestinal: Denies: Nausea, Vomiting, Abdominal Pain Genitourinary: Denies: Dysuria Neurological: Denies: Weakness, Numbness Objective - Exam Vitals and I&O: Vital Signs Temp 97.6 F 11/26/18 05:03 Pulse 119 H 11/26/18 07:58 Resp 14 11/26/18 05:10 BP 102/54 11/26/18 05:03 Pulse Ox 98 11/26/18 05:10 Intake & Output 11/25/18 11/25/18 11/26/18 11:59 23:59 11:59 Intake Total 840 500 360 Output Total 700 400 Balance 140 100 360 Intake: IV 480 Right Forearm 480 Oral 360 500 360 Output: Urine 700 400 Other: Voiding Method Bedside Commode Bedside Commode Bedside Commode # Voids 1 1 2 # Bowel Movements 0 General: Alert, Oriented to Person, Oriented to Place, Oriented to Time, Cooperative, No acute distress HEENT: Atraumatic Neck: Supple, No JVD Lungs: Normal air movement, Speaks full Sentences, Rhonchi (stable). No: Wheezes Cardiovascular: Irregularly Irregular, Atrial Fib Abdomen: Normal bowel sounds, Soft, No tenderness Extremities: Other (2 plus edema) Neurological: Normal speech, Strength Equal Bilat, Normal tone - Results Results: Laboratory Results WBC 13.00 K/ul (4.00-12.00) H 11/24/18 05:20 RBC 4.05 M/ul (3.90-5.20) 11/24/18 05:20 Hgb 11.2 g/dL (12.0-16.0) L 11/24/18 05:20 Hct 34.0 % (34.5-46.5) L 11/24/18 05:20 MCV 84.0 fl (80.0-100.0) 11/24/18 05:20 MCH 27.6 pg (28.0-34.0) L 11/24/18 05:20 MCHC 32.8 g/dL (30.0-36.0) 11/24/18 05:20 RDW 14.5 % (11.3-14.3) H 11/24/18 05:20 Plt Count 525 K/mm3 (130-400) H 11/24/18 05:20 Neut % (Auto) 80.0 % (39.0-79.0) H 11/24/18 05:20 Lymph % (Auto) 10.0 % (16.0-50.0) L 11/24/18 05:20 [place] % (Auto) 6.4 % (0.0-11.0) 11/24/18 05:20 Eos % (Auto) 3.0 % (0.0-6.8) 11/24/18 05:20 Baso % (Auto) 0.6 (0.0-1.5) 11/24/18 05:20 Neut # (Auto) 10.4 # k/uL (1.4-7.7) H 11/24/18 05:20 Lymph # (Auto) 1.3 # k/uL (0.6-4.0) 11/24/18 05:20 [place] # (Auto) 0.8 # k/uL (0.0-0.9) 11/24/18 05:20 Eos # (Auto) 0.4 # k/uL (0.0-0.6) 11/24/18 05:20 Baso # (Auto) 0.1 # k/uL (0.0-0.5) 11/24/18 05:20 PT 42.8 Seconds (9.4-11.6) H 11/24/18 05:20 INR 4.02 (0.9-1.2) H 11/24/18 05:20 APTT 77.3 Seconds (24.5-32.8) H 11/21/18 Unknown Sodium 134 mmol/L (136-145) L 11/24/18 05:20 Potassium 3.5 mmol/L (3.5-5.1) 11/24/18 05:20 Chloride 96 mmol/L (98-107) L 11/24/18 05:20 Carbon Dioxide 33 mmol/L (22-30) H 11/24/18 05:20 BUN 15 mg/dL (7-17) 11/24/18 05:20 Creatinine 0.73 mg/dL (0.52-1.04) 11/24/18 05:20 Estimated Creat Clear 72 11/24/18 05:20 Est GFR ( Amer) > 60 (60-) 11/24/18 05:20 Est GFR (Non-Af Amer) > 60 (60-) 11/24/18 05:20 Glucose 85 mg/dL (74-106) 11/24/18 05:20 Calcium 7.6 mg/dL (8.4-10.2) L 11/24/18 05:20 Total Bilirubin 0.7 mg/dL (0.2-1.3) 11/22/18 06:00 AST 40 U/L (15-46) 11/22/18 06:00 ALT 39 U/L (13-69) 11/22/18 06:00 Alkaline Phosphatase 197 U/L (38-126) H 11/22/18 06:00 Creatine Kinase 37 U/L (30-135) 11/21/18 11:44 CK-MB (CK-2) 0.8 ng/mL (0.0-5.6) 11/21/18 12:00 Troponin I < 0.03 ng/mL (0.03-0.06) L 11/21/18 12:00 NT-Pro-B Natriuret Pep 3178.7 pg/mL (15.0-450.0) H 11/22/18 06:00 Total Protein 5.9 g/dL (6.3-8.2) L 11/22/18 06:00 Albumin 2.9 g/dL (3.5-5.0) L 11/22/18 06:00 Assessment/Plan - Assessment/Plan (1) Pneumonia Status: Acute Current Visit: Yes Qualifiers: Pneumonia type: due to unspecified organism Laterality: bilateral Lung location: unspecified part of lung Qualified Code(s): J18.9 - Pneumonia, unspecified organism Assessment: continue with present care (2) Pedal edema Status: Chronic Current Visit: Yes Assessment: stable (3) Atrial fibrillation with RVR Status: Chronic Current Visit: Yes Assessment: improved (4) Abnormal international normal ratio (INR) Status: Acute Current Visit: Yes Assessment: will recheck in AM
[2018-11-26] MEDS: FUROSEMIDE 40 MG/4 ML VIAL IVP SCH (09:18)
[2018-11-26 09:20] LABS: ABG BASE EXCESS 7.5 (-2 - +2); ABG PH 7.51 (7.35-7.45)
[2018-11-26] MEDS: FLUTICASONE PROPIONATE 50 MCG BLST.W.DEV IH SCH (10:33)
[2018-11-26] MEDS: DOCUSATE SODIUM 100 MG CAPSULE PO SCH (10:34)
[2018-11-26] MEDS: DOXYCYCLINE 100 MG CAPSULE PO SCH (10:34)
[2018-11-26] MEDS: DILTIAZEM HCL 120 MG CAP.ER.24H PO SCH (10:34)
[2018-11-26] MEDS: LEVOFLOXACIN 500MG/D5W 100ML 500 MG in PREMIX BAG 1 BAG IV SCH (10:34)
[2018-11-26] MEDS: HYDROcodone /APAP 5/325 1 EACH TABLET PO SCH (10:34)
[2018-11-26 13:48] VITALS: BP 119/64
== END 2018-11-26 13:45 | DRG 195 ==
LOC: ED 11:08 → SOUTH 14:32
PROVIDERS: ADMIT Family Medicine; ATTEND Family Medicine
DX: J18.9 Pneumonia, unspecified organism (principal); I50.9 Heart failure, unspecified; I48.2 Chronic atrial fibrillation; I51.7 Cardiomegaly; E83.51 Hypocalcemia; R60.0 Localized edema; R00.0 Tachycardia, unspecified; I10 Essential (primary) hypertension; E78.5 Hyperlipidemia, unspecified; Z79.01 Long term (current) use of anticoagulants
CPT/HCPCS: 36415; 36600; 71045; 71046; 80048; 80053; 82550; 82553; 82803; 83880; 84484; 85025; 85610; 85730; 87040; 93005; 94640; 94760; 96365; 99285; A9270; J1940; J1956; J3430; 99222; 99231; 99232; 99238; S1016

== ENCOUNTER 2019-06-06 11:05 | Outpatient (CLI) | payer MEDICARE ==
[2019-06-06 12:45] LABS: eGFR (Non-African) > 60
== END 2019-06-06 11:07 ==
LOC: LAB 11:05
PROVIDERS: ATTEND Family Medicine
DX: I48.91 Unspecified atrial fibrillation (principal); I11.0 Hypertensive heart disease with heart failure; I50.9 Heart failure, unspecified
CPT/HCPCS: 80053; 83880

== ENCOUNTER 2019-06-18 08:46 | Outpatient (CLI) | payer MEDICARE ==
[2019-06-18 09:04] LABS: APPEARANCE,URINE CLEAR (CLEAR); COLOR,URINE YELLOW (YELLOW); OCCULT BLOOD,URINE TRACE-INTACT (NEGATIVE); PH URINE 5.5 (5.0 - 8.0); UROBILINOGEN URINE 0.2 Eu (0.2-1.0)
== END 2019-06-18 08:48 ==
LOC: LAB 08:46
PROVIDERS: ATTEND Family Medicine
DX: I10 Essential (primary) hypertension (principal); I48.91 Unspecified atrial fibrillation; N39.0 Urinary tract infection, site not specified
CPT/HCPCS: 81002; 87086

== ENCOUNTER 2019-07-16 07:00 | Outpatient (CLI) | payer MEDICARE ==
[2019-07-16 08:34] LABS: eGFR (Non-African) > 60
== END 2019-07-16 07:03 ==
LOC: LAB 07:00
PROVIDERS: ATTEND Family Medicine
DX: I50.9 Heart failure, unspecified (principal); I48.91 Unspecified atrial fibrillation
CPT/HCPCS: 36415; 80048; P9603

== ENCOUNTER 2019-07-30 08:39 | Emergency (ER) | payer MEDICARE ==
[2019-07-30] MEDS ORDERED: DEXTROSE 50% 50 ML DISP.SYRIN IVP ONE (09:01)
[2019-07-30] MEDS ORDERED: NACL IV ONE (09:01)
[2019-07-30] MEDS ORDERED: DEXTROSE IV ONE (09:01)
[2019-08-08 09:36] LABS: APPEARANCE,URINE CLOUDY (CLEAR); COLOR,URINE AMBER (YELLOW); OCCULT BLOOD,URINE TRACE-LYSED (NEGATIVE); PH URINE 5.5 (5.0 - 8.0); UROBILINOGEN URINE 0.2 Eu (0.2-1.0)
[2019-08-08 10:45] LABS: BASOPHILS % 0.3 % (0.0-1.5); NEUTROPHILS # 10.9 # k/uL (1.4-7.7); eGFR (Non-African) > 60
[2019-08-08 12:31] LABS: BASOPHILS % 0.4 % (0.0-1.5); NEUTROPHILS # 6.7 # k/uL (1.4-7.7)
[2019-08-08 12:32] LABS: eGFR (Non-African) > 60
--- NOTE | 2019-08-14 09:46 | Diagnostic Imaging Report ---
ROXANA SULLIVAN ED [facility] [address] [facility].[address] [address] Report Submission Date: Jul 31, 2019 1:23:32 AM CDT Patient Study Name: EVERETTE WHYTE Date: Jul 31, 2019 12:59:03 AM CDT Modality Type: CT\SR Gender: F Description: CT ABD/PEL W : 31 Institution: [facility] Physician: ROXANA SULLIVAN ED CT abdomen and pelvis with contrast Clinical history: Hypoglycemia. Contrast administered: 90 mL of Omnipaque. Technique: CT of the abdomen and pelvis is performed with intravenous administration of contrast. Sagittal and coronal reconstructions were performed by the technologist. Findings: There is a right pleural effusion with bibasilar atelectasis. Liver and spleen demonstrate fairly normal attenuation. Gallbladder wall is thickened with stranding in the adjacent fat. There is large gallstone within the gallbladder and findings suggest cholecystitis. There are bilateral renal cysts. The kidneys otherwise demonstrate symmetric enhancement. Vascular calcification and ectasia are evident in the abdominal aorta without evidence of aneurysm. Degenerative changes and scoliosis are evident in the lumbar spine. Multiple diverticula are seen in the sigmoid colon without diverticulitis. Bladder is unremarkable. Uterus and adnexal structures are within normal limits. Impression: 1. Gallbladder wall thickening with pericholecystic stranding consistent with acute cholecystitis. 2. Right pleural effusion and bibasilar atelectasis. 3. Vascular calcification and ectasia. 4. Bilateral renal cysts. Electronically signed on Jul 31, 2019 1:23:32 AM CDT by: Navid LAZCANO
== END 2019-07-30 10:12 ==
LOC: ED 08:39
DX: E16.2 Hypoglycemia, unspecified (principal)
CPT/HCPCS: 51702; 71045; 80053; 81002; 82550; 82553; 83880; 84484; 85025; 85610; 87040; 93005; 96374; 96376; 99283; S5010

== ENCOUNTER 2019-07-31 00:17 | Observation (INO) | payer MEDICARE ==
[~2019-07-31 00:17] MED LIST: ACETAMINOPHEN 325 MG TABLET ONE; METOPROLOL TARTRATE 5 MG/5 ML VIAL IV ONE
[2019-07-31] MEDS ORDERED: ACETAMINOPHEN 325 MG TABLET ONE ×2 (03:12)
[2019-07-31] MEDS ORDERED: FUROSEMIDE 40 MG TABLET PO ONE (08:49)
[2019-07-31] MEDS ORDERED: WARFARIN SODIUM 5 MG TABLET PO ONE (16:57)
[2019-07-31] MEDS ORDERED: SIMVASTATIN 20 MG TABLET ONE (20:11)
[2019-08-01] MEDS ORDERED: BUDESONIDE 0.5MG/2ML AMPUL.NEB NEB ONE (07:54)
[2019-08-01] MEDS ORDERED: FUROSEMIDE 40 MG TABLET PO ONE (07:54)
[2019-08-01] MEDS ORDERED: ACETAMINOPHEN 325 MG TABLET ONE ×2 (09:06)
--- NOTE | 2019-08-23 14:18 | Diagnostic Imaging Report ---
ROXANA SULLIVAN ED [facility] [address] [facility].[address] [address] Report Submission Date: Jul 31, 2019 1:23:32 AM CDT Patient Study Name: EVERETTE WHYTE Date: Jul 31, 2019 12:59:03 AM CDT Modality Type: CT\SR Gender: F Description: CT ABD/PEL W : 31 Institution: [facility] Physician: ROXANA SULLIVAN ED CT abdomen and pelvis with contrast Clinical history: Hypoglycemia. Contrast administered: 90 mL of Omnipaque. Technique: CT of the abdomen and pelvis is performed with intravenous administration of contrast. Sagittal and coronal reconstructions were performed by the technologist. Findings: There is a right pleural effusion with bibasilar atelectasis. Liver and spleen demonstrate fairly normal attenuation. Gallbladder wall is thickened with stranding in the adjacent fat. There is large gallstone within the gallbladder and findings suggest cholecystitis. There are bilateral renal cysts. The kidneys otherwise demonstrate symmetric enhancement. Vascular calcification and ectasia are evident in the abdominal aorta without evidence of aneurysm. Degenerative changes and scoliosis are evident in the lumbar spine. Multiple diverticula are seen in the sigmoid colon without diverticulitis. Bladder is unremarkable. Uterus and adnexal structures are within normal limits. Impression: 1. Gallbladder wall thickening with pericholecystic stranding consistent with acute cholecystitis. 2. Right pleural effusion and bibasilar atelectasis. 3. Vascular calcification and ectasia. 4. Bilateral renal cysts. Electronically signed on Jul 31, 2019 1:23:32 AM CDT by: Navid LAZCANO
== END 2019-08-01 09:25 ==
LOC: ED 00:17 → SOUTH 01:52
PROVIDERS: ADMIT Family Medicine; ATTEND Family Medicine
DX: I10 Essential (primary) hypertension (principal); E16.2 Hypoglycemia, unspecified; M19.90 Unspecified osteoarthritis, unspecified site; I48.91 Unspecified atrial fibrillation
CPT/HCPCS: 36415; 74177; 83525; 84206; 84681; 99218; 99282; 99283; G0378; J7626; Q9967; J3490; S1016

== ENCOUNTER 2019-08-06 12:25 | Outpatient (CLI) | payer MEDICARE | END 2019-08-06 12:30 | disposition home or self-care (01) | LOC: LAB 12:25 | PROVIDERS: ATTEND Family Medicine | DX: I50.9 Heart failure, unspecified (principal); I48.91 Unspecified atrial fibrillation; E16.2 Hypoglycemia, unspecified | CPT/HCPCS: 36415; 83036; P9603 ==

== ENCOUNTER 2019-08-08 07:40 | Outpatient (CLI) | payer MEDICARE ==
[2019-08-08 10:36] LABS: eGFR (Non-African) > 60
== END 2019-08-08 07:45 ==
LOC: LAB 07:40
PROVIDERS: ATTEND Family Medicine
DX: I48.91 Unspecified atrial fibrillation (principal); N39.0 Urinary tract infection, site not specified; I50.9 Heart failure, unspecified
CPT/HCPCS: 36415; 80048; P9603

== ENCOUNTER 2019-08-27 13:28 | Outpatient (CLI) | payer MEDICARE | END 2019-08-27 13:33 | LOC: LAB 13:28 | PROVIDERS: ATTEND Family Medicine | DX: I48.91 Unspecified atrial fibrillation (principal); I11.0 Hypertensive heart disease with heart failure; I50.9 Heart failure, unspecified | CPT/HCPCS: 36415; 85610; P9603 ==

== ENCOUNTER 2019-09-25 12:10 | Outpatient (CLI) | payer MEDICARE ==
[2019-09-25 13:43] LABS: SEGMENTED NEUTROPHILS % 82 % (39-79)
[2019-09-25 13:44] LABS: ANISOCYTOSIS 1+ (NEGATIVE); HYPOCHROMASIA 2+ (NEGATIVE); OVALOCYTES 1+ (NEGATIVE)
[2019-09-25 13:45] LABS: eGFR (Non-African) > 60
== END 2019-09-25 12:15 ==
LOC: LAB 12:10
PROVIDERS: ATTEND Family Medicine
DX: Z51.81 Encounter for therapeutic drug level monitoring (principal); I48.91 Unspecified atrial fibrillation; I50.9 Heart failure, unspecified
CPT/HCPCS: 36415; 80053; 85025; 85610; P9603

== ENCOUNTER 2019-09-26 08:01 | Outpatient (CLI) | payer MEDICARE ==
[2019-09-26 08:27] LABS: APPEARANCE,URINE CLOUDY (CLEAR); COLOR,URINE YELLOW (YELLOW); OCCULT BLOOD,URINE 1+ (NEGATIVE)
== END 2019-09-26 08:06 ==
LOC: LAB 08:01
PROVIDERS: ATTEND Family Medicine
DX: N39.0 Urinary tract infection, site not specified (principal)
CPT/HCPCS: 81002; 87086

== ENCOUNTER 2019-10-24 08:50 | Outpatient (CLI) | payer MEDICARE | END 2019-10-24 08:55 | LOC: LAB 08:50 | PROVIDERS: ATTEND Family Medicine | DX: Z51.81 Encounter for therapeutic drug level monitoring (principal); I48.91 Unspecified atrial fibrillation | CPT/HCPCS: 36415; 85610; P9603 ==